=== PATIENT | male | born 1985 | race Caucasian/White ===

== ENCOUNTER 2017-11-06 18:53 | Emergency (ER) | payer OTHER | END 2017-11-06 21:55 | disposition left against medical advice (07) | LOC: NED 18:53 | DX: Z04.1 Encounter for examination and observation following transport accident (principal) | CPT/HCPCS: 99281 ==

== ENCOUNTER 2017-11-07 00:43 | Emergency (ER) | payer OTHER ==
[~2017-11-07] VITALS: Ht 167.6 cm; Wt 70.5 kg
[2017-11-07 01:15] VITALS: BP 121/63; PULSE 63; TEMP 98; O2SAT 97
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
== END 2017-11-07 04:17 | disposition home or self-care (01) ==
LOC: NEPD 00:43
DX: S16.1XXA Strain of muscle, fascia and tendon at neck level, initial encounter (principal); V89.2XXA Person injured in unspecified motor-vehicle accident, traffic, initial encounter; Z72.0 Tobacco use
CPT/HCPCS: 72125; 99283